=== PATIENT | female | born 1930 | race Caucasian/White ===

== ENCOUNTER → 2019-02-12 | Outpatient (CLI) | payer MEDICARE | END | disposition home or self-care (01) | LOC: RAH 13:31 | PROVIDERS: ATTEND Orthopaedic Surgery | DX: M19.012 Primary osteoarthritis, left shoulder (principal) | CPT/HCPCS: 73200 ==

== ENCOUNTER 2019-04-30 12:05 | Emergency (ER) | payer MEDICARE ==
[~2019-04-30 12:05] MED LIST: ASCO10007 PO; ASPI-1181 PO; BIMA2.5D5 OP; BRIM5DRO4 OP; CALC-916 PO; DORZ10DR14 OD; HYDR-4457 PO; HYDR25TA PO; MULT1TAB66 PO; POTA10TA14 PO
[2019-04-30] MEDS ORDERED: TETANUS/DIPHTHERIA TOXOID [ADULT] 0.5 ML VIAL IM ONE (12:19)
[2019-04-30] MEDS ORDERED: LIDOCAINE HCL 1% 20 ML VIAL ONE (13:16)
== END 2019-04-30 15:52 | disposition home or self-care (01) ==
LOC: EDH 12:05
DX: S01.81XA Laceration without foreign body of other part of head, initial encounter (principal); I10 Essential (primary) hypertension; Z86.73 Personal history of transient ischemic attack (TIA), and cerebral infarction without residual deficits; Z85.038 Personal history of other malignant neoplasm of large intestine; Z88.0 Allergy status to penicillin; Z91.018 Allergy to other foods; W18.39XA Other fall on same level, initial encounter; Y93.01 Activity, walking, marching and hiking; Y92.89 Other specified places as the place of occurrence of the external cause; Y99.8 Other external cause status
CPT/HCPCS: 12052; 70450; 70486; 72125; 73030; 90471; 90714

== ENCOUNTER 2019-12-22 17:45 | Emergency (ER) | payer MEDICARE ==
[2019-12-22 19:00] LABS: BASOPHILS % (AUTO) 0.7 % (0.0-5.0); EOSINOPHILS % (AUTO) 1.9 % (0.0-8.0); HEMATOCRIT 42.3 % (36-48); LYMPHOCYTES % (AUTO) 16.4 % (21.0-51.0); MEAN CORPUSCULAR HGB CONC 34.5 g/dL (32.0-36.0); MEAN CORPUSCULAR VOLUME 89.8 fL (79-99); MONOCYTES % (AUTO) 6.3 % (3.0-13.0); NEUTROPHILS % (AUTO) 74.4 % (40.0-77.0); PLATELET COUNT (AUTO) 187 K/uL (130-400); RED BLOOD CELL COUNT(AUTO) 4.71 MIL/uL (4.00-5.50); RED CELL DISTRIBUTION WIDTH 12.7 % (11.0-15.5); WHITE BLOOD COUNT (AUTO) 11.5 K/uL (4.8-10.8)
[2019-12-22 19:20] LABS: ALBUMIN 3.9 g/dL (3.5-5.0); BILIRUBIN,TOTAL 0.5 mg/dL (0.2-1.0); TOTAL PROTEIN, SERUM 7.6 g/dL (6.0-8.3)
[2019-12-22 19:30] LABS: INR 0.97 (0.85-1.15); PARTIAL THROMBOPLASTIN TIME 27.5 SEC (26.3-35.5); PROTHROMBIN TIME 10.2 SEC (9.6-11.6)
[2019-12-22] MEDS ORDERED: CLONIDINE HCL 0.1 MG TABLET ONE (19:30)
[2019-12-22] MEDS ORDERED: TRAMADOL HCL 50 MG TABLET ONE (19:30)
[2019-12-22 19:35] LABS: B-TYPE NATRIURETIC PEPTIDE 133 pg/mL (0-100)
[2019-12-22] MEDS ORDERED: CEFDINIR 125 MG/5 ML 60ML BOTTLE PO ONE (22:00)
== END 2019-12-22 21:24 | disposition home or self-care (01) ==
LOC: EDH 17:45
DX: S02.2XXA Fracture of nasal bones, initial encounter for closed fracture (principal); I10 Essential (primary) hypertension; Z88.0 Allergy status to penicillin; Z91.018 Allergy to other foods; Z86.73 Personal history of transient ischemic attack (TIA), and cerebral infarction without residual deficits; W10.1XXA Fall (on)(from) sidewalk curb, initial encounter; Y93.01 Activity, walking, marching and hiking; Y92.89 Other specified places as the place of occurrence of the external cause; Y99.8 Other external cause status
CPT/HCPCS: 36415; 70450; 70486; 71045; 72125; 80053; 82550; 83880; 84484; 85025; 85610; 85730; 93005